=== PATIENT | female | born 1940 | race Caucasian/White ===

== ENCOUNTER 2023-10-26 08:54 | Outpatient (RCR) | payer OTHER, SELFPAY ==
[2023-09-28 09:15] VITALS: BP 155/54
[2023-09-28 09:25] LABS: % Basophils 0.3 % (0-2); % Eosinophils 1.3 % (0-6); % Immature Granulocytes 0.5 % (0-0.5); % Lymphocytes 7.3 % (20.5-51.1); % Monocytes 6.6 % (1.7-9.3); Absolute Eosinophils 0.1 10^3/uL (0-0.7); Absolute Immature Granulocytes 0.1 10^3/uL (0-0.05); Absolute Lymphocytes 0.8 10^3/uL (1.2-3.4); Absolute Monocytes 0.7 10^3/uL (0.1-0.6); Absolute Neutrophils 8.9 10^3/uL (1.4-6.5); Hematocrit 29.9 % (37.0-47.0); Hemoglobin 10.3 g/dL (12.0-16.0); Mean Corp Hgb Conc. 34.4 g/dL (33.0-37.0); Mean Corpuscular Hgb 32.8 pg (27.0-31.0); Mean Corpuscular Volume 95.2 fL (81.0-99.0); Mean Platelet Volume 8.8 fL (7.4-10.4); Platelet Count 285 10^3/uL (130-400); Red Blood Cell Count 3.14 10^6/uL (4.20-5.40); Red Cell Dist. Width 16.9 % (11.5-14.5); White Blood Cell Count 10.6 10^3/uL (4.8-10.8)
[2023-09-28 09:35] LABS: ALT (SGPT) 29 U/L (0-35); AST (SGOT) 28 U/L (14-36); Albumin 4.2 g/dl (3.5-5.0); Alkaline Phosphatase 74 U/L (38-126); Blood Urea Nitrogen 26 mg/dl (7-17); Calcium 9.6 mg/dl (8.4-10.2); Carbon Dioxide 24 mmol/L (22-30); Chloride 101 mmol/L (98-107); Glucose 112 mg/dl (70-99); Potassium 3.7 mmol/L (3.5-5.1); Sodium 137 mmol/L (135-145); Total Bilirubin 1.1 mg/dl (0.2-1.3); Total Protein 6.6 g/dl (6.3-8.2); eGFR > 60.00
[2023-09-28] MEDS: TYLENOL 650 MG PO (10:32)
[2023-09-28] MEDS: BENADRYL 51 MG IV (10:33)
[2023-09-28] MEDS: [UNRECOGNIZED DRUG - OTHER] 11.6999999999999993 MG SC (10:59)
[2023-09-28 11:13] VITALS: BP 139/53
[2023-09-28] MEDS: [UNRECOGNIZED DRUG - OTHER] 105.099999999999994 MG IV (11:23)
[2023-09-28 11:27] VITALS: BP 138/54
[2023-09-28] MEDS: EMEND 155 MG IV (12:12)
[2023-09-28] MEDS: ALOXI 5 MG IV (12:12)
[2023-09-28] MEDS: DECADRON 51 MG IV (12:53)
[2023-09-28] MEDS: CYCLOPHOSPHAMIDE 255.740000000000009 MG IV (13:15)
[2023-09-28] MEDS: [UNRECOGNIZED DRUG - OTHER] 507.649999999999977 MG IV (14:25)
[2023-09-28 15:34] VITALS: BP 130/50
[2023-09-29] MEDS: FULPHILA 6 MG SC (14:45)
[2023-09-29 15:01] VITALS: BP 150/60
[2023-10-05 09:12] LABS: % Basophils 0.1 % (0-2); % Eosinophils 1.7 % (0-6); % Immature Granulocytes 1.3 % (0-0.5); % Lymphocytes 10.2 % (20.5-51.1); % Monocytes 8.1 % (1.7-9.3); % Neutrophils 78.6 % (42.2-75.2); Absolute Eosinophils 0.1 10^3/uL (0-0.7); Absolute Immature Granulocytes 0.1 10^3/uL (0-0.05); Absolute Lymphocytes 0.8 10^3/uL (1.2-3.4); Absolute Monocytes 0.6 10^3/uL (0.1-0.6); Absolute Neutrophils 6.1 10^3/uL (1.4-6.5); Hematocrit 32.8 % (37.0-47.0); Mean Corp Hgb Conc. 33.5 g/dL (33.0-37.0); Mean Corpuscular Hgb 32.9 pg (27.0-31.0); Mean Corpuscular Volume 98.2 fL (81.0-99.0); Mean Platelet Volume 8.7 fL (7.4-10.4); Platelet Count 231 10^3/uL (130-400); Red Blood Cell Count 3.34 10^6/uL (4.20-5.40); Red Cell Dist. Width 17.1 % (11.5-14.5); White Blood Cell Count 7.8 10^3/uL (4.8-10.8)
[2023-10-05 09:47] LABS: ALT (SGPT) 28 U/L (0-35); AST (SGOT) 27 U/L (14-36); Albumin 4.3 g/dl (3.5-5.0); Alkaline Phosphatase 98 U/L (38-126); Blood Urea Nitrogen 17 mg/dl (7-17); Calcium 9.8 mg/dl (8.4-10.2); Carbon Dioxide 28 mmol/L (22-30); Chloride 101 mmol/L (98-107); Glucose 136 mg/dl (70-99); Potassium 4.2 mmol/L (3.5-5.1); Sodium 138 mmol/L (135-145); Total Bilirubin 1.2 mg/dl (0.2-1.3); Total Protein 6.8 g/dl (6.3-8.2); eGFR > 60.00
[2023-10-12 09:02] LABS: % Basophils 0.5 % (0-2); % Eosinophils 0.3 % (0-6); % Immature Granulocytes 1.5 % (0-0.5); % Lymphocytes 6.4 % (20.5-51.1); % Monocytes 3.2 % (1.7-9.3); % Neutrophils 88.1 % (42.2-75.2); Absolute Basophils 0.1 10^3/uL (0-0.2); Absolute Eosinophils 0.1 10^3/uL (0-0.7); Absolute Immature Granulocytes 0.2 10^3/uL (0-0.05); Absolute Lymphocytes 1.1 10^3/uL (1.2-3.4); Absolute Monocytes 0.5 10^3/uL (0.1-0.6); Absolute Neutrophils 14.6 10^3/uL (1.4-6.5); Mean Corp Hgb Conc. 33.3 g/dL (33.0-37.0); Mean Corpuscular Hgb 33.1 pg (27.0-31.0); Mean Corpuscular Volume 99.4 fL (81.0-99.0); Mean Platelet Volume 8.9 fL (7.4-10.4); Platelet Count 234 10^3/uL (130-400); Red Blood Cell Count 3.32 10^6/uL (4.20-5.40); Red Cell Dist. Width 17.6 % (11.5-14.5); White Blood Cell Count 16.5 10^3/uL (4.8-10.8)
[2023-10-12 09:32] LABS: ALT (SGPT) 30 U/L (0-35); AST (SGOT) 29 U/L (14-36); Albumin 4.3 g/dl (3.5-5.0); Alkaline Phosphatase 97 U/L (38-126); Blood Urea Nitrogen 18 mg/dl (7-17); Calcium 9.4 mg/dl (8.4-10.2); Carbon Dioxide 27 mmol/L (22-30); Chloride 106 mmol/L (98-107); Glucose 144 mg/dl (70-99); Potassium 4.3 mmol/L (3.5-5.1); Sodium 139 mmol/L (135-145); Total Protein 6.9 g/dl (6.3-8.2); eGFR > 60.00
[2023-10-19 08:30] VITALS: BP 138/54; BMI 25.6
[2023-10-19 09:03] LABS: % Basophils 0.3 % (0-2); % Immature Granulocytes 0.3 % (0-0.5); % Lymphocytes 6.4 % (20.5-51.1); % Monocytes 4.7 % (1.7-9.3); % Neutrophils 87.3 % (42.2-75.2); Absolute Eosinophils 0.1 10^3/uL (0-0.7); Absolute Lymphocytes 0.5 10^3/uL (1.2-3.4); Absolute Monocytes 0.4 10^3/uL (0.1-0.6); Absolute Neutrophils 6.9 10^3/uL (1.4-6.5); Hematocrit 28.5 % (37.0-47.0); Hemoglobin 9.7 g/dL (12.0-16.0); Mean Corpuscular Hgb 33.2 pg (27.0-31.0); Mean Corpuscular Volume 97.6 fL (81.0-99.0); Mean Platelet Volume 8.6 fL (7.4-10.4); Platelet Count 240 10^3/uL (130-400); Red Blood Cell Count 2.92 10^6/uL (4.20-5.40); Red Cell Dist. Width 17.6 % (11.5-14.5); White Blood Cell Count 7.9 10^3/uL (4.8-10.8)
[2023-10-19 09:32] LABS: ALT (SGPT) 28 U/L (0-35); AST (SGOT) 29 U/L (14-36); Albumin 3.6 g/dl (3.5-5.0); Alkaline Phosphatase 70 U/L (38-126); Blood Urea Nitrogen 24 mg/dl (7-17); Calcium 9.4 mg/dl (8.4-10.2); Carbon Dioxide 21 mmol/L (22-30); Chloride 102 mmol/L (98-107); Estimated Creatinine Clearance 60 ml/min; Glucose 147 mg/dl (70-99); Potassium 3.4 mmol/L (3.5-5.1); Sodium 137 mmol/L (135-145); Total Bilirubin 1.1 mg/dl (0.2-1.3); eGFR > 60.00
[2023-10-19] MEDS: TYLENOL 650 MG PO (10:03)
[2023-10-19] MEDS: BENADRYL 51 MG IV (10:03)
[2023-10-19] MEDS: [UNRECOGNIZED DRUG - OTHER] 11.6999999999999993 MG SC (10:28)
[2023-10-19] MEDS: [UNRECOGNIZED DRUG - OTHER] 105.099999999999994 MG IV (11:07)
[2023-10-19] MEDS: EMEND 155 MG IV (11:56)
[2023-10-19] MEDS: ALOXI 5 MG IV (11:56)
[2023-10-19 12:05] VITALS: BP 128/56
[2023-10-19] MEDS: DECADRON 51 MG IV (12:42)
[2023-10-19] MEDS: CYCLOPHOSPHAMIDE 255.740000000000009 MG IV (13:15)
[2023-10-19] MEDS: [UNRECOGNIZED DRUG - OTHER] 507.649999999999977 MG IV (14:27)
[2023-10-19 15:40] VITALS: BP 122/50
[2023-10-20] MEDS: FULPHILA 6 MG SC (14:53)
[2023-10-20 15:20] VITALS: BP 138/54
[2023-10-26 09:45] LABS: % Basophils 0.9 % (0-2); % Eosinophils 7.1 % (0-6); % Immature Granulocytes 9.7 % (0-0.5); % Lymphocytes 8.8 % (20.5-51.1); % Monocytes 19.5 % (1.7-9.3); Absolute Eosinophils 0.1 10^3/uL (0-0.7); Absolute Immature Granulocytes 0.1 10^3/uL (0-0.05); Absolute Lymphocytes 0.1 10^3/uL (1.2-3.4); Absolute Monocytes 0.2 10^3/uL (0.1-0.6); Absolute Neutrophils 0.6 10^3/uL (1.4-6.5); Hemoglobin 9.6 g/dL (12.0-16.0); Mean Corp Hgb Conc. 34.3 g/dL (33.0-37.0); Mean Corpuscular Volume 99.3 fL (81.0-99.0); Mean Platelet Volume 8.9 fL (7.4-10.4); Platelet Count 147 10^3/uL (130-400); Red Blood Cell Count 2.82 10^6/uL (4.20-5.40); Red Cell Dist. Width 17.3 % (11.5-14.5); White Blood Cell Count 1.1 10^3/uL (4.8-10.8)
[2023-10-26 11:33] LABS: ALT (SGPT) 29 U/L (0-35); AST (SGOT) 31 U/L (14-36); Albumin 3.9 g/dl (3.5-5.0); Alkaline Phosphatase 88 U/L (38-126); Blood Urea Nitrogen 16 mg/dl (7-17); Calcium 9.1 mg/dl (8.4-10.2); Carbon Dioxide 29 mmol/L (22-30); Chloride 99 mmol/L (98-107); Estimated Creatinine Clearance 60 ml/min; Glucose 117 mg/dl (70-99); Potassium 3.9 mmol/L (3.5-5.1); Sodium 134 mmol/L (135-145); Total Bilirubin 1.8 mg/dl (0.2-1.3); Total Protein 6.4 g/dl (6.3-8.2); eGFR > 60.00
== END 2023-10-27 23:59 | disposition home or self-care (01) ==
LOC: OID 08:54
PROVIDERS: ATTENDING PHYSICIAN Internal Medicine Hematology & Oncology; FAMILY PHYSICIAN Internal Medicine
DX: Z51.11 Encounter for antineoplastic chemotherapy (principal); C50.112 Malignant neoplasm of central portion of left female breast (principal); C88.4 Extranodal marginal zone B-cell lymphoma of mucosa-associated lymphoid tissue [MALT-lymphoma]; Z17.0 Estrogen receptor positive status [ER+]
CPT/HCPCS: 36415; 80053; 85025; 96367; 96372; 96375; 96401; 96413; 96417; J1453; J2469; J9070; J9181; J9309; J9311; Q5108

== ENCOUNTER → 2023-11-08 07:17 | Outpatient (REF) | payer OTHER, SELFPAY | LOC: RAD 07:17 | PROVIDERS: ATTENDING PHYSICIAN Internal Medicine Hematology & Oncology; FAMILY PHYSICIAN Internal Medicine | DX: C50.112 Malignant neoplasm of central portion of left female breast (principal); C88.4 Extranodal marginal zone B-cell lymphoma of mucosa-associated lymphoid tissue [MALT-lymphoma] | CPT/HCPCS: 71046 ==

== ENCOUNTER 2023-11-16 09:06 | Outpatient (RCR) | payer OTHER, SELFPAY ==
[2023-11-02 09:16] LABS: % Basophils 0.6 % (0-2); % Eosinophils 0.8 % (0-6); % Immature Granulocytes 5.8 % (0-0.5); % Lymphocytes 6.1 % (20.5-51.1); % Monocytes 4.8 % (1.7-9.3); % Neutrophils 81.9 % (42.2-75.2); Absolute Basophils 0.1 10^3/uL (0-0.2); Absolute Eosinophils 0.2 10^3/uL (0-0.7); Absolute Immature Granulocytes 1.1 10^3/uL (0-0.05); Absolute Lymphocytes 1.2 10^3/uL (1.2-3.4); Absolute Monocytes 0.9 10^3/uL (0.1-0.6); Absolute Neutrophils 15.4 10^3/uL (1.4-6.5); Hematocrit 28.6 % (37.0-47.0); Hemoglobin 9.5 g/dL (12.0-16.0); Mean Corp Hgb Conc. 33.2 g/dL (33.0-37.0); Mean Corpuscular Hgb 34.1 pg (27.0-31.0); Mean Corpuscular Volume 102.5 fL (81.0-99.0); Mean Platelet Volume 8.7 fL (7.4-10.4); Platelet Count 337 10^3/uL (130-400); Red Blood Cell Count 2.79 10^6/uL (4.20-5.40); Red Cell Dist. Width 17.3 % (11.5-14.5); White Blood Cell Count 18.9 10^3/uL (4.8-10.8)
[2023-11-02 10:46] LABS: ALT (SGPT) 24 U/L (0-35); AST (SGOT) 29 U/L (14-36); Albumin 3.9 g/dl (3.5-5.0); Alkaline Phosphatase 91 U/L (38-126); Blood Urea Nitrogen 22 mg/dl (7-17); Calcium 10.1 mg/dl (8.4-10.2); Carbon Dioxide 25 mmol/L (22-30); Chloride 101 mmol/L (98-107); Glucose 140 mg/dl (70-99); Potassium 4.5 mmol/L (3.5-5.1); Sodium 141 mmol/L (135-145); Total Protein 6.5 g/dl (6.3-8.2); eGFR > 60.00
[2023-11-09 09:06] LABS: % Basophils 0.6 % (0-2); % Eosinophils 1.5 % (0-6); % Immature Granulocytes 0.5 % (0-0.5); % Lymphocytes 5.6 % (20.5-51.1); % Monocytes 4.9 % (1.7-9.3); % Neutrophils 86.9 % (42.2-75.2); Absolute Basophils 0.1 10^3/uL (0-0.2); Absolute Eosinophils 0.2 10^3/uL (0-0.7); Absolute Immature Granulocytes 0.1 10^3/uL (0-0.05); Absolute Lymphocytes 0.7 10^3/uL (1.2-3.4); Absolute Monocytes 0.6 10^3/uL (0.1-0.6); Absolute Neutrophils 10.9 10^3/uL (1.4-6.5); Hemoglobin 9.1 g/dL (12.0-16.0); Mean Corp Hgb Conc. 33.7 g/dL (33.0-37.0); Mean Corpuscular Hgb 34.5 pg (27.0-31.0); Mean Corpuscular Volume 102.3 fL (81.0-99.0); Mean Platelet Volume 8.6 fL (7.4-10.4); Platelet Count 338 10^3/uL (130-400); Red Blood Cell Count 2.64 10^6/uL (4.20-5.40); White Blood Cell Count 12.5 10^3/uL (4.8-10.8)
[2023-11-09 09:07] VITALS: BP 137/53; BMI 25.4
[2023-11-09 09:21] LABS: ALT (SGPT) 23 U/L (0-35); AST (SGOT) 28 U/L (14-36); Albumin 4.1 g/dl (3.5-5.0); Alkaline Phosphatase 76 U/L (38-126); Blood Urea Nitrogen 28 mg/dl (7-17); Calcium 9.7 mg/dl (8.4-10.2); Carbon Dioxide 22 mmol/L (22-30); Chloride 107 mmol/L (98-107); Estimated Creatinine Clearance 46 ml/min; Glucose 129 mg/dl (70-99); Potassium 3.5 mmol/L (3.5-5.1); Sodium 137 mmol/L (135-145); Total Bilirubin 0.9 mg/dl (0.2-1.3); Total Protein 6.5 g/dl (6.3-8.2); eGFR > 60.00
[2023-11-09] MEDS: TYLENOL 650 MG PO (10:05)
[2023-11-09] MEDS: BENADRYL 51 MG IV (10:05)
[2023-11-09] MEDS: [UNRECOGNIZED DRUG - OTHER] 11.7 MG SC (10:45)
[2023-11-09] MEDS: [UNRECOGNIZED DRUG - OTHER] 105.1 MG IV (11:27)
[2023-11-09] MEDS: EMEND 155 MG IV (12:09)
[2023-11-09] MEDS: ALOXI 5 MG IV (12:45)
[2023-11-09] MEDS: DECADRON 51 MG IV (12:45)
[2023-11-09] MEDS: CYCLOPHOSPHAMIDE 255.74 MG IV (13:16)
[2023-11-09] MEDS: [UNRECOGNIZED DRUG - OTHER] 507.65 MG IV (14:29)
[2023-11-09 15:36] VITALS: BP 132/51
[2023-11-10 14:32] VITALS: BP 127/45
[2023-11-10] MEDS: FULPHILA 6 MG SC (14:37)
[2023-11-16 09:28] LABS: % Basophils 0.5 % (0-2); % Eosinophils 3.9 % (0-6); % Immature Granulocytes 6.4 % (0-0.5); % Lymphocytes 15.3 % (20.5-51.1); % Monocytes 17.7 % (1.7-9.3); % Neutrophils 56.2 % (42.2-75.2); Absolute Eosinophils 0.1 10^3/uL (0-0.7); Absolute Immature Granulocytes 0.1 10^3/uL (0-0.05); Absolute Lymphocytes 0.3 10^3/uL (1.2-3.4); Absolute Monocytes 0.4 10^3/uL (0.1-0.6); Absolute Neutrophils 1.1 10^3/uL (1.4-6.5); Hematocrit 27.2 % (37.0-47.0); Hemoglobin 9.2 g/dL (12.0-16.0); Mean Corp Hgb Conc. 33.8 g/dL (33.0-37.0); Mean Corpuscular Hgb 35.1 pg (27.0-31.0); Mean Corpuscular Volume 103.8 fL (81.0-99.0); Platelet Count 133 10^3/uL (130-400); Red Blood Cell Count 2.62 10^6/uL (4.20-5.40); Red Cell Dist. Width 18.5 % (11.5-14.5)
[2023-11-16 10:18] LABS: ALT (SGPT) 22 U/L (0-35); AST (SGOT) 22 U/L (14-36); Albumin 3.8 g/dl (3.5-5.0); Alkaline Phosphatase 77 U/L (38-126); Blood Urea Nitrogen 17 mg/dl (7-17); Calcium 9.7 mg/dl (8.4-10.2); Carbon Dioxide 28 mmol/L (22-30); Chloride 99 mmol/L (98-107); Estimated Creatinine Clearance 54 ml/min; Glucose 124 mg/dl (70-99); Potassium 3.4 mmol/L (3.5-5.1); Sodium 137 mmol/L (135-145); Total Bilirubin 1.2 mg/dl (0.2-1.3); Total Protein 6.1 g/dl (6.3-8.2); eGFR > 60.00
== END 2023-11-25 14:12 | disposition home or self-care (01) ==
LOC: OID 09:06
PROVIDERS: ATTENDING PHYSICIAN Internal Medicine Hematology & Oncology; FAMILY PHYSICIAN Internal Medicine
DX: C50.112 Malignant neoplasm of central portion of left female breast (principal); C88.4 Extranodal marginal zone B-cell lymphoma of mucosa-associated lymphoid tissue [MALT-lymphoma]; Z51.11 Encounter for antineoplastic chemotherapy
CPT/HCPCS: 36415; 80053; 85025; 96367; 96372; 96375; 96401; 96413; 96417; J1453; J2469; J9073; J9181; J9309; J9311; Q5108

== ENCOUNTER → 2023-11-23 08:10 | Outpatient (REF) | payer OTHER, SELFPAY ==
[2023-11-23 09:04] LABS: % Basophils 0.6 % (0-2); % Eosinophils 0.4 % (0-6); % Immature Granulocytes 1.8 % (0-0.5); % Lymphocytes 6.6 % (20.5-51.1); % Neutrophils 85.6 % (42.2-75.2); Absolute Basophils 0.1 10^3/uL (0-0.2); Absolute Eosinophils 0.1 10^3/uL (0-0.7); Absolute Immature Granulocytes 0.2 10^3/uL (0-0.05); Absolute Lymphocytes 0.9 10^3/uL (1.2-3.4); Absolute Monocytes 0.6 10^3/uL (0.1-0.6); Absolute Neutrophils 11.1 10^3/uL (1.4-6.5); Hematocrit 29.5 % (37.0-47.0); Hemoglobin 9.9 g/dL (12.0-16.0); Mean Corp Hgb Conc. 33.6 g/dL (33.0-37.0); Mean Corpuscular Volume 104.2 fL (81.0-99.0); Mean Platelet Volume 9.7 fL (7.4-10.4); Nucleated Red Blood Cells % 0 %; Platelet Count 254 10^3/uL (130-400); Red Blood Cell Count 2.83 10^6/uL (4.20-5.40); Red Cell Dist. Width 18.7 % (11.5-14.5); White Blood Cell Count 12.9 10^3/uL (4.8-10.8)
[2023-11-23 09:58] LABS: Hepatitis B Surface Antigen Negative (Negative)
[2023-11-23 10:15] LABS: Hepatitis B Core Ab, Total Negative (Negative)
[2023-11-23 11:54] LABS: ALT (SGPT) 32 U/L (0-35); AST (SGOT) 31 U/L (14-36); Albumin 4.2 g/dl (3.5-5.0); Alkaline Phosphatase 96 U/L (38-126); Blood Urea Nitrogen 26 mg/dl (7-17); Calcium 9.8 mg/dl (8.4-10.2); Carbon Dioxide 24 mmol/L (22-30); Chloride 105 mmol/L (98-107); Glucose 117 mg/dl (70-99); Iron 125 ug/dl (37-170); LDH 235 U/L (120-246); Sodium 138 mmol/L (135-145); Total Bilirubin 0.8 mg/dl (0.2-1.3); Total Protein 6.9 g/dl (6.3-8.2); eGFR > 60.00
[2023-11-23 12:46] LABS: Percent Saturation 41 % (20-50); Total Iron Binding Capacity 301 ug/dl (265-497)
[2023-11-24 19:10] LABS: Hepatitis Be Antibody Negative (Negative)
== END ==
LOC: REG 08:10
PROVIDERS: ATTENDING PHYSICIAN Internal Medicine Hematology & Oncology; FAMILY PHYSICIAN Internal Medicine
DX: C50.112 Malignant neoplasm of central portion of left female breast (principal); R93.5 Abnormal findings on diagnostic imaging of other abdominal regions, including retroperitoneum
CPT/HCPCS: 36415; 80053; 82728; 83540; 83550; 83615; 85025; 86704; 86707; 87340

== ENCOUNTER 2023-12-08 17:35 | Emergency (ER) | payer OTHER, SELFPAY ==
[2023-12-08 17:59] VITALS: BP 161/70
[2023-12-08 18:32] VITALS: BP 145/64; BMI 26.5
--- NOTE | 2023-12-08 18:32 | ED.GENMED ---
History of Present Illness
General
Chief Complaint: Musculo-Skeletal Complaint
Source: patient
Exam Limitations: none
Time Seen by Provider: 12/08/23 18:00
Travel History
Have you had any contact with someone who has COVID-19?: No
Do you have any symptoms of coronavirus? Fever > 100 degrees, chills, cough, shortness of breath, sore throat, loss of taste or smell, muscle aches, or headache?: No
History of Present Illness
History of Present Illness:
This is a 83 year old female that comes in with c/o leg pain. States that she was sitting in her kitchen and she was getting up and down when she started with severe right posterior thigh pain. States that she also has pain in the right anterior
lower leg just above the ankle. States that she has pain in the left upper thigh. States that this came on Suddenly. States that she also had a knot on the left abd but this is better. Denies any fever, chills, chest pain, SOB, nausea, vomiting,
diarrhea, headache, dizziness, urinary burning.
Past History
Past History
ED Past Medical History: Cancer (Breast cancer Left , Lymphoma), HTN, Hypercholesterolemia and Other (Neuropathy, Mason Palsy, Ulcers, )
ED Past Surgical History: Other (TRAM flap, mastectomy, Hernia)
Social History
Tobacco: Former smoker
Alcohol: Occasional
Drug: None
Personal:
Living: with family
Employment: Retired
Family History
Family History: Other (Noncontributory)
Review of Systems
Review of Systems
All Other Systems: ROS reviewed and negative except as documented in HPI and ROS
Constitutional: Reports no symptoms; Denies fever or chills
EENT: Reports no symptoms
Respiratory: Reports no symptoms; Denies cough or trouble breathing
Cardiac: Reports no symptoms; Denies chest pain
ABD/GI: Reports abdominal pain (left sided felt a knot when she got up but gone); Denies nausea, vomiting or diarrhea
: Reports no symptoms; Denies dysuria, frequency or urgency
Musculoskeletal: Reports other (Right posterior thigh and lower right leg pain and left thigh anterior pain)
Skin: Reports no symptoms
Neurological: Reports no symptoms; Denies dizzy or headache
Psychiatric: Reports no symptoms
Phy Exam
General Physical Exam
General Presentation: mild distress
General age: appears stated age
General Skin: warm and dry
General Habitus: elderly
General Mental: alert
General Hydration: dry mucous membranes
ENT Exam
ENT Exam: TM's normal, pharynx normal and neck supple
Eye Exam
Eye Exam: EOMI
Cardiovascular Exam
Cardiovascular Exam: regular rate/rhythm, no edema and normal peripheral pulses
Pulmonary Exam
Pulmonary Exam: lungs clear, no respiratory distress, no rales, chest non tender, no crackles, no rhonchi, no wheezing and no cough
Gastrointestinal Exam
Gastrointestinal Exam: normal bowel sounds, non tender, soft, no organomegaly, no pulsatile mass and non distended
Musculoskeletal Exam
Musculoskeletal Exam: full ROM, no edema and other (No swelling or redness noted)
Skin Exam
Skin Exam: normal color, warm/dry, no rash and no petechia
Psychiatric Exam
Psychiatric Exam: normal mood/affect
Course
Orders/Labs/Results
Orders:
Orders
12/08/23 18:30
Acetaminophen [Tylenol] 1,000 mg PO NOW STA
Ketorolac [Toradol] 30 mg IV NOW STA
US Legs, Bilateral [US Periph Venous LOWER Ext Luke] Urgent
Comment:
Reason For Exam: Right thigh and lower leg pain. Left thigh pain
12/08/23 18:38
0.9% Sodium Chloride 1000 ml [Nss] 1,000 ml IV BOLUS
12/08/23 18:58
Complete Blood Count/With Diff Urgent
Comprehensive Metabolic Panel Urgent
Manual Differential Urgent
Abnormal Lab Results
12/08/23
18:58
RBC 2.62 L 10^6/uL
(4.20-5.40)
Hgb 9.3 L g/dL
(12.0-16.0)
Hct 26.8 L %
(37.0-47.0)
MCV 102.3 H fL
(81.0-99.0)
MCH 35.5 H pg
(27.0-31.0)
RDW 17.2 H %
(11.5-14.5)
Abs Neuts (Manual) 6.9 H 10^3/uL
(1.4-6.5)
Band Neutrophils 14 H %
(0-3)
Lymphocytes (Manual) 7 L %
(20-51)
Monocytes (Manual) 13 H %
(2-9)
BUN 27 H mg/dl
(7-17)
12/08/23 18:58
12/08/23 18:58
Vital Signs
Initial and Last Documented VS:
Initial Vital Signs
Temp Pulse Resp BP Pulse Ox
98.2 F 107 16 161/70 98
12/08/23 17:59 12/08/23 17:59 12/08/23 17:59 12/08/23 17:59 12/08/23 17:59
Last Documented Vital Signs
Temp Pulse Resp BP Pulse Ox
98.2 F 98 16 145/64 97
12/08/23 17:59 12/08/23 18:32 12/08/23 18:32 12/08/23 18:32 12/08/23 18:32
MDM/Problems Addressed
Differential Diagnosis Includes:
Musculoskeletal pain, DVT,
MDM/Problems Addressed:
This is a 83 year old female that comes in with c/o right posterior thigh pain and right lower leg pain just above the ankle. States that she also has left anterior thigh discomfort. States that this came on suddenly.
Will check labs, Medicate for pain and get US bilaterally
back into see patient. Patient states that she is feeling better. Explained that her US are normal. Will get patient up and see if she can walk around. If able to walk will discharge home.
patient was able to ambulate. Will discharge home.
Chronic conditions affecting care: Cancer
Acute Exacerbation and/or Progression of Chronic Illness: Cancer
*Radiology
Radiology exam reviewed: radiology read reviewed (US- No sonographic evidence for lower extremity venous thrombosis. )
*Pulse Oximetry
Patient hypoxic: no
*EKG
Interpreted by ED Provider?: NA
Rate: EKG- N/A
*Systems Trainer Interpretation
Rate: Systems Trainer- N/A
*Critical Care Note
Total Time (30-74mins, 75-104mins- exclusive of procedures): Not Applicable
ED Attending Note
-
Portions of this chart may have been created with voice recognition software.� Occasional wrong word or��sound alike� substitutions may have occurred due to the inherent limitations of voice recognition software.
Discharge Plan
Departure
Patient Disposition: Home (Routine Discharge)
Date of Disposition: 12/08/23
Time of Disposition: 22:43
Patient with high blood pressure during this ER visit?: Yes
Condition: Good
Covid-19: Not Applicable
Discharge Problem:
Bilateral leg pain
Instructions: Muscle and Bone Pain (DC), BLOOD PRESSURE
Prescriptions:
No Action
metoprolol succinate 50 mg Tablet Extended Release 24 Hr
50 mg PO DAILY
hydrochlorothiazide 25 mg Tablet
25 mg PO DAILY
atorvastatin 40 mg Tablet
40 mg PO QPM
glucosamine sulfate [Glucosamine] 500 mg Tablet
1,500 mg PO DAILY
losartan 100 mg Tablet
100 mg PO DAILY
carboxymethylcellulose sodium 1 % Drops, Liquid Gel
1 drp BOTH EYES DAILY
therapeutic multivitamin Tablet
3 tab PO DAILY
pantoprazole [Protonix] 40 mg tablet,delayed release (DR/EC)
40 mg PO BID Qty: 60 1RF
cholecalciferol (vitamin D3) [Vitamin D3] 25 mcg (1,000 unit) Capsule
25 mcg PO DAILY
Ocuvite Tablet
1 tab PO DAILY
acyclovir 400 mg Tablet
400 mg PO DAILY
allopurinol 300 mg Tablet
300 mg PO DAILY
atovaquone 750 mg/5 mL Suspension
1,500 mg PO DAILY
prochlorperazine maleate [Compazine] 10 mg Tablet
10 mg PO Q6H PRN (Reason: NAUSEA)
ondansetron [Zofran ODT] 8 mg Tablet,Disintegrating
8 mg PO Q8H PRN (Reason: NAUSEA)
prednisone 20 mg Tablet
20 mg PO .WITH CHEMO
Rx Instructions:
20 MG DAILY X 5 DAYS WITH CHEMO
loratadine [Claritin] 10 mg Tablet
10 mg PO DAILY
Referrals:
Halle Dhillon DO [Family Provider] - Call in 1-3 days for appt
Activity Restrictions/Additional Instructions:
As discussed, your blood work shows that you are anemia and a little dehydrated. Please increase your water intake to 8-8oz glasses daily. Your Ultrasounds is normal bilaterally. Follow up with the family doctor and your Oncologist for further
evaluation. You may use Tylenol 1000mg every 6 hours for pain and or Ibuprofen 600mg every 6 hours with food for pain. IF YOU HAVE INCREASED OR CHANGING PAIN, OR YOU HAVE ANY OTHER CONCERNS PLEASE RETURN TO THE EMERGENCY ROOM.
Interventions
Interventions:
*Risk Screen - Suicide Last Done: 12/08/23 17:45
*General Assessment Last Done: 12/08/23 17:45
*Neglect/Abuse Screening Last Done: 12/08/23 17:45
ED- Fall Risk Assessment Last Done: 12/08/23 18:32
*ED COVID-19 Vaccine History Last Done: 12/08/23 17:45
ED-Musculoskeletal Assessment Last Done: 12/08/23 18:32
--- NOTE | 2023-12-08 18:42 | EDRN ---
IV team called to access R ACW port.
[2023-12-08 19:14] LABS: Hematocrit 26.8 % (37.0-47.0); Hemoglobin 9.3 g/dL (12.0-16.0); Mean Corp Hgb Conc. 34.7 g/dL (33.0-37.0); Mean Corpuscular Hgb 35.5 pg (27.0-31.0); Mean Corpuscular Volume 102.3 fL (81.0-99.0); Mean Platelet Volume 9.2 fL (7.4-10.4); Platelet Count 220 10^3/uL (130-400); Red Blood Cell Count 2.62 10^6/uL (4.20-5.40); Red Cell Dist. Width 17.2 % (11.5-14.5)
[2023-12-08 19:28] LABS: ALT (SGPT) 24 U/L (0-35); AST (SGOT) 26 U/L (14-36); Alkaline Phosphatase 92 U/L (38-126); Blood Urea Nitrogen 27 mg/dl (7-17); Calcium 9.5 mg/dl (8.4-10.2); Carbon Dioxide 27 mmol/L (22-30); Chloride 104 mmol/L (98-107); Estimated Creatinine Clearance 60 ml/min; Glucose 89 mg/dl (70-99); Sodium 135 mmol/L (135-145); Total Bilirubin 0.6 mg/dl (0.2-1.3); Total Protein 6.3 g/dl (6.3-8.2); eGFR > 60.00
[2023-12-08 19:37] LABS: Absolute Neutrophils -Man Diff 6.9 10^3/uL (1.4-6.5); Anisocytosis 1+; Band Neutrophils 14 % (0-3); Eosinophils 1 % (0-6); Lymphocytes 7 % (20-51); Macrocytosis 1+; Monocytes 13 % (2-9); Myelocytes 2 % (-); Normal RBC Morphology No; Platelets Checked Yes; Segmented Neutrophils 63 % (42-75); Total Cells Counted 100
[2023-12-08] MEDS: TYLENOL 1000 MG PO (19:56)
[2023-12-08] MEDS: TORADOL 30 MG IV (19:57)
[2023-12-08] MEDS: NSS 1000 IV (19:58)
[2023-12-08 20:00] VITALS: BP 156/65
[2023-12-08 21:00] VITALS: BP 130/51
[2023-12-08 23:00] VITALS: BP 135/58
== END 2023-12-09 00:15 | disposition home or self-care (01) ==
LOC: EMR 17:35
PROVIDERS: Clinical Nurse Specialist Family Health; EMERGENCY PHYSICIAN Emergency Medicine; FAMILY PHYSICIAN Internal Medicine
DX: M79.652 Pain in left thigh (principal); M79.651 Pain in right thigh; I10 Essential (primary) hypertension; E78.00 Pure hypercholesterolemia, unspecified; Z87.891 Personal history of nicotine dependence
CPT/HCPCS: 99284; 96374; 96361; 80053; 85025; 93970

== ENCOUNTER 2023-12-14 08:59 | Outpatient (RCR) | payer OTHER, SELFPAY ==
[2023-11-30 09:12] LABS: % Basophils 0.6 % (0-2); % Eosinophils 0.6 % (0-6); % Immature Granulocytes 0.1 % (0-0.5); % Lymphocytes 4.9 % (20.5-51.1); % Monocytes 3.8 % (1.7-9.3); Absolute Basophils 0.1 10^3/uL (0-0.2); Absolute Eosinophils 0.1 10^3/uL (0-0.7); Absolute Lymphocytes 0.4 10^3/uL (1.2-3.4); Absolute Monocytes 0.3 10^3/uL (0.1-0.6); Absolute Neutrophils 7.7 10^3/uL (1.4-6.5); Hematocrit 28.9 % (37.0-47.0); Hemoglobin 9.8 g/dL (12.0-16.0); Mean Corp Hgb Conc. 33.9 g/dL (33.0-37.0); Mean Corpuscular Hgb 35.8 pg (27.0-31.0); Mean Corpuscular Volume 105.5 fL (81.0-99.0); Mean Platelet Volume 8.6 fL (7.4-10.4); Platelet Count 314 10^3/uL (130-400); Red Blood Cell Count 2.74 10^6/uL (4.20-5.40); Red Cell Dist. Width 17.7 % (11.5-14.5); White Blood Cell Count 8.5 10^3/uL (4.8-10.8)
[2023-11-30 09:35] VITALS: BP 168/55
[2023-11-30 09:43] LABS: ALT (SGPT) 24 U/L (0-35); AST (SGOT) 29 U/L (14-36); Albumin 4.4 g/dl (3.5-5.0); Alkaline Phosphatase 62 U/L (38-126); Blood Urea Nitrogen 31 mg/dl (7-17); Carbon Dioxide 27 mmol/L (22-30); Chloride 103 mmol/L (98-107); Glucose 148 mg/dl (70-99); Potassium 3.6 mmol/L (3.5-5.1); Sodium 140 mmol/L (135-145); Total Bilirubin 0.9 mg/dl (0.2-1.3); Total Protein 6.7 g/dl (6.3-8.2); eGFR > 60.00
[2023-11-30] MEDS: BENADRYL 51 MG IV (10:15)
[2023-11-30] MEDS: TYLENOL 650 MG PO (10:15)
[2023-11-30] MEDS: [UNRECOGNIZED DRUG - OTHER] 11.6999999999999993 MG SC (10:42)
[2023-11-30] MEDS: [UNRECOGNIZED DRUG - OTHER] 105.099999999999994 MG IV (11:29)
[2023-11-30] MEDS: EMEND 155 MG IV (12:13)
[2023-11-30] MEDS: ALOXI 5 MG IV (12:51)
[2023-11-30] MEDS: DECADRON 51 MG IV (12:51)
[2023-11-30] MEDS: CYCLOPHOSPHAMIDE 255.740000000000009 MG IV (13:32)
[2023-11-30] MEDS: [UNRECOGNIZED DRUG - OTHER] 507.649999999999977 MG IV (14:42)
[2023-11-30 15:09] VITALS: BP 138/47
[2023-12-01 14:30] VITALS: BP 128/53
[2023-12-01] MEDS: FULPHILA 6 MG SC (14:43)
[2023-12-07 09:12] LABS: % Basophils 0.2 % (0-2); % Immature Granulocytes 1.9 % (0-0.5); % Lymphocytes 4.7 % (20.5-51.1); % Monocytes 8.7 % (1.7-9.3); % Neutrophils 83.5 % (42.2-75.2); Absolute Eosinophils 0.1 10^3/uL (0-0.7); Absolute Immature Granulocytes 0.2 10^3/uL (0-0.05); Absolute Lymphocytes 0.4 10^3/uL (1.2-3.4); Absolute Monocytes 0.7 10^3/uL (0.1-0.6); Absolute Neutrophils 6.8 10^3/uL (1.4-6.5); Hematocrit 30.1 % (37.0-47.0); Hemoglobin 10.4 g/dL (12.0-16.0); Mean Corp Hgb Conc. 34.6 g/dL (33.0-37.0); Mean Corpuscular Hgb 36.5 pg (27.0-31.0); Mean Corpuscular Volume 105.6 fL (81.0-99.0); Platelet Count 221 10^3/uL (130-400); Red Blood Cell Count 2.85 10^6/uL (4.20-5.40); Red Cell Dist. Width 16.9 % (11.5-14.5); White Blood Cell Count 8.1 10^3/uL (4.8-10.8)
[2023-12-07 10:51] LABS: Blood Urea Nitrogen 23 mg/dl (7-17); Calcium 9.7 mg/dl (8.4-10.2); Carbon Dioxide 27 mmol/L (22-30); Chloride 102 mmol/L (98-107); Glucose 147 mg/dl (70-99); LDH 232 U/L (120-246); Potassium 3.6 mmol/L (3.5-5.1); Sodium 137 mmol/L (135-145); eGFR > 60.00
[2023-12-14 09:20] LABS: % Basophils 0.4 % (0-2); % Eosinophils 0.4 % (0-6); % Immature Granulocytes 0.7 % (0-0.5); % Lymphocytes 6.4 % (20.5-51.1); % Monocytes 4.5 % (1.7-9.3); % Neutrophils 87.6 % (42.2-75.2); Absolute Basophils 0.1 10^3/uL (0-0.2); Absolute Eosinophils 0.1 10^3/uL (0-0.7); Absolute Immature Granulocytes 0.1 10^3/uL (0-0.05); Absolute Lymphocytes 0.8 10^3/uL (1.2-3.4); Absolute Monocytes 0.5 10^3/uL (0.1-0.6); Absolute Neutrophils 10.6 10^3/uL (1.4-6.5); Hematocrit 33.1 % (37.0-47.0); Mean Corp Hgb Conc. 33.2 g/dL (33.0-37.0); Mean Corpuscular Hgb 35.5 pg (27.0-31.0); Mean Corpuscular Volume 106.8 fL (81.0-99.0); Platelet Count 225 10^3/uL (130-400); Red Cell Dist. Width 16.2 % (11.5-14.5); White Blood Cell Count 12.1 10^3/uL (4.8-10.8)
[2023-12-14 10:23] LABS: Blood Urea Nitrogen 18 mg/dl (7-17); Calcium 9.6 mg/dl (8.4-10.2); Carbon Dioxide 26 mmol/L (22-30); Chloride 105 mmol/L (98-107); Glucose 159 mg/dl (70-99); LDH 218 U/L (120-246); Potassium 3.4 mmol/L (3.5-5.1); Sodium 137 mmol/L (135-145); eGFR > 60.00
== END 2023-12-26 23:59 | disposition home or self-care (01) ==
LOC: OID 08:59
PROVIDERS: ATTENDING PHYSICIAN Internal Medicine Hematology & Oncology; FAMILY PHYSICIAN Internal Medicine
DX: Z51.11 Encounter for antineoplastic chemotherapy (principal); C50.112 Malignant neoplasm of central portion of left female breast; C88.4 Extranodal marginal zone B-cell lymphoma of mucosa-associated lymphoid tissue [MALT-lymphoma]
CPT/HCPCS: 36415; 80048; 80053; 83615; 85025; 96367; 96372; 96375; 96401; 96413; 96417; J1453; J2469; J9070; J9181; J9309; J9311; Q5108

== ENCOUNTER 2024-01-25 09:14 | Outpatient (RCR) | payer OTHER, SELFPAY ==
[2024-01-25 09:37] VITALS: BP 135/64
== END 2024-01-25 23:59 | disposition home or self-care (01) ==
LOC: OID 09:14
PROVIDERS: ATTENDING PHYSICIAN Internal Medicine Hematology & Oncology; FAMILY PHYSICIAN Internal Medicine
DX: C50.112 Malignant neoplasm of central portion of left female breast (principal); C88.4 Extranodal marginal zone B-cell lymphoma of mucosa-associated lymphoid tissue [MALT-lymphoma]; Z51.11 Encounter for antineoplastic chemotherapy
CPT/HCPCS: 96523

== ENCOUNTER → 2024-02-01 15:07 | Outpatient (REF) | payer OTHER, SELFPAY | LOC: HWWDC 15:07 | PROVIDERS: ATTENDING PHYSICIAN Internal Medicine Hematology & Oncology; FAMILY PHYSICIAN Internal Medicine | DX: Z12.31 Encounter for screening mammogram for malignant neoplasm of breast (principal); C88.4 Extranodal marginal zone B-cell lymphoma of mucosa-associated lymphoid tissue [MALT-lymphoma]; C50.112 Malignant neoplasm of central portion of left female breast | CPT/HCPCS: 77063; 77067 ==

== ENCOUNTER → 2024-02-29 06:27 | Day surgery (SDC) | payer OTHER, SELFPAY | LOC: GI 06:27 | PROVIDERS: ATTENDING PHYSICIAN Internal Medicine Gastroenterology | DX: K29.60 Other gastritis without bleeding (principal); K29.50 Unspecified chronic gastritis without bleeding; K31.A0 Gastric intestinal metaplasia, unspecified; C85.90 Non-Hodgkin lymphoma, unspecified, unspecified site; K31.89 Other diseases of stomach and duodenum; Z87.11 Personal history of peptic ulcer disease | CPT/HCPCS: 43239; 88305 ==

== ENCOUNTER 2024-03-21 09:15 | Outpatient (RCR) | payer OTHER, SELFPAY ==
[2024-03-21 09:43] VITALS: BP 129/60
== END 2024-03-21 14:48 | disposition home or self-care (01) ==
LOC: OID 09:15
PROVIDERS: ATTENDING PHYSICIAN Internal Medicine Hematology & Oncology; FAMILY PHYSICIAN Internal Medicine
DX: C50.112 Malignant neoplasm of central portion of left female breast (principal); C88.4 Extranodal marginal zone B-cell lymphoma of mucosa-associated lymphoid tissue [MALT-lymphoma]; Z17.0 Estrogen receptor positive status [ER+]; Z51.11 Encounter for antineoplastic chemotherapy
CPT/HCPCS: 96523

== ENCOUNTER → 2024-04-04 12:18 | Outpatient (REF) | payer OTHER, SELFPAY ==
[2024-04-04 12:35] VITALS: BP 165/75; BP_SYST 81
== END ==
LOC: RADI 12:18
PROVIDERS: ATTENDING PHYSICIAN Internal Medicine Hematology & Oncology; FAMILY PHYSICIAN Internal Medicine
DX: Z45.2 Encounter for adjustment and management of vascular access device (principal); Z85.72 Personal history of non-Hodgkin lymphomas
CPT/HCPCS: 36590; 77001

== ENCOUNTER → 2025-01-12 11:03 | Outpatient (REF) | payer OTHER, SELFPAY | LOC: RAD 11:03 | PROVIDERS: ATTENDING PHYSICIAN Obstetrics & Gynecology; FAMILY PHYSICIAN Internal Medicine | DX: R31.0 Gross hematuria (principal) | CPT/HCPCS: 74178; Q9967 ==

== ENCOUNTER → 2025-03-27 08:13 | Outpatient (REF) | payer OTHER, SELFPAY | LOC: HWRAD 08:13 | PROVIDERS: ATTENDING PHYSICIAN Internal Medicine | DX: Z78.0 Asymptomatic menopausal state (principal); Z13.820 Encounter for screening for osteoporosis; Z12.31 Encounter for screening mammogram for malignant neoplasm of breast | CPT/HCPCS: 77063; 77067; 77080 ==